=== PATIENT | male | born 1980 | race Caucasian/White ===

== ENCOUNTER 2019-03-31 17:03 | Emergency (ER) | payer BC ==
--- NOTE | 2019-03-31 18:02 | EDM.PDOC ---
ED HPI GENERAL MEDICAL PROBLEM - General Chief Complaint: ENT Problem Stated Complaint: DENTAL COMPLAINT Time Seen by Provider: 03/31/19 17:42 Source of Information: Reports: Patient History Limitations: Reports: No Limitations - History of Present Illness INITIAL COMMENTS - FREE TEXT/NARRATIVE: Patient is a 38 year old male who presents to the E.D. complaining of right upper tooth pain (#1). Patient states it started two days ago with intermittent pain with chewing on food. Denies sensitivity with cold and hot fluids. Denies gum line swelling, difficulty swallowing, change in voice, sore throat, or any additional complaints. He has not taken anything for the pain. Just wants to make sure that there is no infection present. States he does have cap In place. Right Upper Tooth/Teeth Pain Score (Numeric/FACES): 6 - Related Data Allergies Allergy/AdvReac Type Severity Reaction Status Date / Time Sulfa (Sulfonamide Allergy Swelling Verified 03/31/19 17:30 Antibiotics) Home Meds: Home Meds . [No Known Home Meds] 03/31/19 [History] Past Medical History - Past Health History Medical/Surgical History: Denies Medical/Surgical History Social & Family History - Tobacco Use Smoking Status *Q: Current Every Day Smoker Years of Tobacco use: 20 Packs/Tins Daily: 1 ED ROS ENT - Review of Systems Review Of Systems: ROS reveals no pertinent complaints other than HPI. ED EXAM, ENT - Physical Exam Exam: See Below Exam Limited By: No Limitations General Appearance: Alert, WD/WN, No Apparent Distress Eye Exam: Bilateral Eye: Normal Inspection Ears: Normal External Exam, Hearing Grossly Normal. No: Mastoid Swelling Nose: Normal Inspection, Normal Mucousa, No Blood Mouth/Throat: Normal Inspection, Normal Gums, Normal Lips, Normal Oropharynx, Other (#1 tooth has a catheter in place with no pain with gentle pressure or gumline swelling.). No: Dental Tenderness, Dry Mucous Membrane, Gum Swelling, Hoarse Voice, Muffled Voice, Peritonsillar Mass, Pharyngeal Erythema, Teething, Throat Pain, Tonsillar Erythema, Tonsillar Exudates, Tonsillar Swelling, Trismus , Uvular Deviation, Uvular Edema Neck: Normal Inspection, Supple, Non-Tender, Full Range of Motion. No: Lymphadenopathy (L), Lymphadenopathy (R) Respiratory/Chest: No Respiratory Distress, Lungs Clear, Normal Breath Sounds, Chest Non-Tender Cardiovascular: Normal Peripheral Pulses, Regular Rate, Rhythm, No Murmur Neurological: Alert, Oriented, CN II-XII Intact, Normal Cognition, No Motor/ Sensory Deficits Psychiatric: Normal Affect, Normal Mood Skin: Warm, Dry, Intact, Normal Color Course - Vital Signs Last Recorded V/S: Last Vital Signs Temp 98.7 F 03/31/19 17:28 Pulse 68 03/31/19 17:28 Resp 16 03/31/19 17:28 BP 132/96 H 03/31/19 17:28 Pulse Ox 99 03/31/19 17:28 - Re-Assessments/Exams Free Text/Narrative Re-Assessment/Exam: On exam patient has a catheter in place with no concerns for gumline swelling or tenderness with gentle pressure with a tongue depressor. At this point I do not believe patient has a dental infection. No antibiotics required at this time. advised patient to use anti-inflammatories and refraining from chewing on the affected side. Make an appointment with a dentist of his choosing for definitive evaluation and treatment. He may use some [id number] medications as well. Return precautions were discussed with the patient. He agreed with plan. Discharge instructions as documented. Departure - Departure Time of Disposition: 18:03 Disposition: Home, Self-Care 01 Condition: Good Clinical Impression: Pain, dental - Discharge Information Additional Instructions: Utilize ibuprofen 600 mg 4 times a day, Tylenol 650 mg 4 times a day in alternating fashion for pain. They use clove while, Anbesol, Orajel as needed. Call and make an appointment to see a dentist of your choosing for definitive evaluation and treatment. Refrain from chewing on the affected side. Refrain from any aggravating factors. Return to the ED if you develop any new or worsening symptoms.
== END 2019-03-31 18:15 | disposition home or self-care (01) ==
LOC: JD.ED 17:03
DX: K08.89 Other specified disorders of teeth and supporting structures (principal); F17.210 Nicotine dependence, cigarettes, uncomplicated; Z88.2 Allergy status to sulfonamides
CPT/HCPCS: 99282

== ENCOUNTER 2021-05-23 18:25 | Emergency (ER) | payer BC ==
[2021-05-23] MEDS ORDERED: cefTRIAXone 2 GM, Lidocaine 1% 4.2 ML IM ONE ×2 (20:50)
--- NOTE | 2021-05-23 20:54 | EDM.PDOC ---
ED HPI GENERAL MEDICAL PROBLEM - General Chief Complaint: Skin Complaint Stated Complaint: BUG BITE Time Seen by Provider: 05/23/21 20:05 Source of Information: Reports: Patient History Limitations: Reports: No Limitations - History of Present Illness INITIAL COMMENTS - FREE TEXT/NARRATIVE: 40-year-old male presents the emergency department with a bug bite noted to the left inner forearm. Patient states he also has 2 bites to his right thoracic area. States he noticed these today. He states that the one to his left inner forearm became itchy today and he scratched it and as the day has progressed it has become more erythematous and edematous and a streak has formed of his medial arm. Denies any recent fever, chills, nausea, vomiting or diarrhea. States he is otherwise healthy. - Related Data Allergies Allergy/AdvReac Type Severity Reaction Status Date / Time Sulfa (Sulfonamide Allergy Swelling Verified 05/23/21 20:00 Antibiotics) Home Meds: Home Meds cephALEXin [Keflex] 500 mg PO QID #40 cap 05/23/21 [Rx] Past Medical History - Past Health History Medical/Surgical History: Denies Medical/Surgical History - Past Surgical History HEENT Surgical History: Reports: Other (See Below) Other HEENT Surgeries/Procedures: wisdom teeth extraction Musculoskeletal Surgical History: Reports: Other (See Below) Other Musculoskeletal Surgeries/Procedures:: bicep tendon repair Social & Family History - Tobacco Use Tobacco Use Status *Q: Current Every Day Tobacco User Years of Tobacco use: 20 Packs/Tins Daily: 0.7 - Caffeine Use Caffeine Use: Reports: Energy Drinks - Recreational Drug Use Recreational Drug Use: No ED ROS GENERAL - Review of Systems Review Of Systems: Comprehensive ROS is negative, except as noted in HPI. ED EXAM, SKIN/RASH Exam: See Below Exam Limited By: No Limitations General Appearance: Alert, WD/WN, No Apparent Distress Ears: Normal External Exam, Hearing Grossly Normal Nose: Normal Inspection Throat/Mouth: Normal Inspection, Normal Lips, Normal Voice, No Airway Compromise Head: Atraumatic Neck: Normal Inspection, Supple Respiratory/Chest: No Respiratory Distress, No Accessory Muscle Use Cardiovascular: Normal Peripheral Pulses, Regular Rate, Rhythm GI/Abdominal: No Distention (Male) Exam: Deferred Rectal (Males) Exam: Deferred Back Exam: Other (Patient has 2 areas on right thoracic area which appear to be bug bites.) Extremities: Normal Range of Motion, Non-Tender, No Pedal Edema, Normal Capillary Refill, Other (Patient does have a papule noted to left inner forearm with erythema and edema noted surrounding it. Patient does have area of streaking noted going up the medial forearm.) Neurological: Alert, Oriented, Normal Cognition Psychiatric: Normal Affect, Normal Mood Skin: Warm, Dry, Intact, Normal Color, No Rash, Wound/Incision (Patient does have a papule noted to left inner forearm with erythema and edema noted surrounding it. Patient does have area of streaking noted going up the medial forearm.) Location, Skin: Upper Extremity, Left Characteristics: Vesicular, Erythematous Associated features: Warmth, Swelling, Inflammation, Weeping Lymphatic: No Adenopathy Course - Vital Signs Text/Narrative:: As stated above, patient presents with bug bite noted to his left medial forearm area. States he scratched it today and area has become more inflamed and swollen and he has noted a streak up his left medial forearm. Physical exam reveals reddened bug bite approximately the size of a pea. There does appear to be watery drainage noted. Area of erythema and edema noted surrounding the bug bite approximately 2 cm in diameter. There is a red streak noted just proximal his antecubital area approximately 2 cm. And also does have 2 areas to his right sick area which appear to be bug bites as well. These are not erythematous or edematous. These are not oozing. Patient is afebrile and hemodynamically stable. He is not exhibiting signs of fever, chills, nausea, vomiting or diarrhea. Will order wound cultures. Will give the patient a shot of IM Rocephin 2 g. He will then be discharged to home with Keflex 500 mg 4 times daily for 10 days total. He has been given strong return precautions. Last Recorded V/S: Last Vital Signs Temp 98.0 F 05/23/21 20:01 Pulse 66 05/23/21 20:01 Resp 14 05/23/21 20:01 BP 140/96 H 05/23/21 20:01 Pulse Ox 94 L 05/23/21 20:01 - Orders/Labs/Meds Orders: Active Orders 24 hr Category Date Time Status CULTURE, ANAEROBE & AEROBE [MREF] Stat Lab 05/23/21 21:00 Received Meds: Medications Discontinued Medications Generic Name Dose Route Start Last Admin Trade Name Sneha PRN Reason Stop Dose Admin Ceftriaxone Sodium 2 gm/ 0 gm 05/23/21 20:50 05/23/21 21:04 Lidocaine HCl 4.2 ml IM 05/23/21 20:51 4.2 inj ONETIME ONE Administration Departure - Departure Time of Disposition: 21:23 Disposition: Home, Self-Care 01 Condition: Good Clinical Impression: Cellulitis Qualifiers: Site of cellulitis: extremity Site of cellulitis of extremity: lower extremity Laterality: left Qualified Code(s): L03.116 - Cellulitis of left lower limb - Discharge Information Prescriptions: cephALEXin [Keflex] 500 mg PO QID #40 cap Instructions: Cellulitis, Adult, [id number] Referrals: PCP,None [Primary Care Provider] - Forms: ED Department Discharge Additional Instructions: You were seen in the emergency department this evening with an infected bug bite. Cultures were collected. You were given a shot of IM antibiotic while in the emergency department. A prescription for an oral antibiotic called [place]. You will need to take this medication 4 times daily for days total. Should you develop any fever, chills, nausea, vomiting or diarrhea, it is strongly encourage you be a reevaluated. Should your condition worsen or change, do not hesitate return to the emergency department. Sepsis Event Note (ED) - Evaluation Sepsis Screening Result: No Definite Risk - Focused Exam Vital Signs: Vital Signs Temp Pulse Resp BP Pulse Ox 05/23/21 20:01 98.0 F 66 14 140/96 H 94 L - My Orders Last 24 Hours: My Active Orders 05/23/21 21:00 CULTURE, ANAEROBE & AEROBE [MREF] Stat - Assessment/Plan Last 24 Hours: My Active Orders 05/23/21 21:00 CULTURE, ANAEROBE & AEROBE [MREF] Stat
== END 2021-05-23 21:40 | disposition home or self-care (01) ==
LOC: JD.ED 18:25
DX: L03.116 Cellulitis of left lower limb (principal); R60.0 Localized edema; Z88.2 Allergy status to sulfonamides; Z72.0 Tobacco use
CPT/HCPCS: 87070; 87205; 96372; 99283; J0696; 87075